=== PATIENT | female | born 1960 | race Caucasian/White ===

== ENCOUNTER 2019-03-27 13:10 | Inpatient (IN) | payer OTHER ==
[~2019-03-27] VITALS: Ht 167.6 cm; Wt 86.2 kg
[~2019-03-27 13:10] MED LIST: [UNRECOGNIZED DRUG - OTHER] PO
[2019-03-27] MEDS ORDERED: ACETAMINOPHEN 325 MG TAB PO STA (16:46)
[2019-03-27] MEDS ORDERED: SODIUM CHLORIDE 0.9% 1L BAG IV* STA (16:46)
[2019-03-27] MEDS ORDERED: CEFEPIME 2GM/50 ML (PMX) 50 ML IVPB STA (16:46)
[2019-03-27] MEDS ORDERED: morphine 4 MG/ML VIAL IV STA (16:46)
[2019-03-27] MEDS ORDERED: PRED5TAB PO (17:20)
[2019-03-27] MEDS ORDERED: HYDR25TA6 PO (17:21)
[2019-03-27] MEDS ORDERED: TRAM50TA PO (17:21)
[2019-03-27] MEDS ORDERED: IBUP-1542 PO (17:21)
[2019-03-27] MEDS ORDERED: MET25 PO (17:22)
[2019-03-27] MEDS ORDERED: SOD CHLORIDE 0.9% 1,000 ML IV SCH (18:59)
[2019-03-27] MEDS ORDERED: ONDANSETRON 4 MG INJ IV PRN ×2 (19:00→19:30)
[2019-03-27] MEDS ORDERED: morphine 2 MG INJ IV PRN (19:00)
[2019-03-27] MEDS ORDERED: ACETAMINOPHEN 325 MG TAB PO PRN ×2 (19:00→19:30)
[2019-03-27] MEDS ORDERED: POTASSIUM CHLORIDE 20 MEQ POWDER FOR ORAL SOLN PO ONE (19:00)
[2019-03-27] MEDS ORDERED: NACL 0.9% 3 ML SYG IV SCH (19:00)
[2019-03-27] MEDS ORDERED: KETOROLAC 30 MG INJ IV STA (19:02)
--- NOTE | 2019-03-27 19:19 | ERD ---
ER Documentation Chief Complaint Chief Complaint FEVER / BODY PAIN HPI 58-year-old female presenting with complaints of fevers intermittently for "a long time" and increasing body pain for the past few days. She complains of bilateral knee and back pain. She is on chronic steroids which usually control her pain. However lately her symptoms have worsened and are not controlled with Tylenol and ibuprofen that she takes at home. She denies any chest pain, shortness of breath, abdominal pain, vomiting, diarrhea, neck stiffness or pain, photophobia, headache, dysuria. Pain is 10 out of 10 in her joints, throbbing, with no alleviating factors. Exacerbated by walking. No numbness or tingling. ROS All systems reviewed and are negative except as per history of present illness. Medications Home Meds Reported Medications Methotrexate* (Methotrexate*) 2.5 Mg Tab, 10 MG PO Q7D, TAB 03/27/19 Hydrochlorothiazide* (Hydrochlorothiazide*) 25 Mg Tab, 25 MG PO DAILY, #30 TAB 03/27/19 Ibuprofen* (Ibuprofen*) 600 Mg Tablet, 600 MG PO Q8, TAB 03/27/19 Tramadol Hcl* (Ultram*) 50 Mg Tablet, 50 MG PO Q6H PRN for PAIN, TAB 03/27/19 Prednisone* (Prednisone*) 5 Mg Tab, 5 MG PO DAILY, TAB 03/27/19 Discontinued Reported Medications [Rumoquin] No Conflict Check, 1 PO DAILY 08/25/13 Allergies Allergies: Coded Allergies: No Known Allergy (Unverified , 03/27/19) PMhx/Soc Medical and Surgical Hx: pt denies Surgical Hx History of Surgery: No Anesthesia Reaction: No Hx Neurological Disorder: No Hx Respiratory Disorders: No Hx Cardiac Disorders: Yes (HTN) Hx Psychiatric Problems: No Hx Alcohol Use: No Hx Substance Use: No Hx Tobacco Use: No Smoking Status: Never smoker FmHx Family History: No diabetes Physical Exam Vitals Vital Signs Date Temp Pulse Resp B/P (MAP) Pulse Ox O2 O2 Flow FiO2 Time Delivery Rate 03/27/19 97.9 94 21 113/72 97 Room Air 18:27 (86) 03/27/19 102.0 17:12 03/27/19 100.6 14:52 03/27/19 102.8 130 24 193/97 99 13:19 (129) Physical Exam Const: Crying, in distress due to pain. Nontoxic Head: Atraumatic Eyes: Normal Conjunctiva ENT: Normal External Ears, Nose and Mouth.posterior oropharynx normal Neck: Full range of motion. No meningismus. Resp: Clear to auscultation bilaterally Cardio: tachycardic with regular rhythm, no murmurs Abd: Soft, non tender, non distended. Normal bowel sounds Skin: No petechiae or rashes Back: No midline or flank tenderness. Diffuse paraspinal muscle tenderness. Ext: Bilateral knee joint swelling with effusions, no erythema. Mild tenderness to palpation. Limited range of motion at knee secondary to pain. Full range of motion at the hips and ankles with no swelling at those joints. B ilateral upper extremities normal to inspection and palpation. Neur: Awake and alert Psych: Normal Mood and Affect Result Diagram: 03/27/19165603/27/191656 Results 24 hrs Laboratory Tests Test 03/27/19 16:56 03/27/19 16:57 03/27/19 16:59 Erythrocyte Sedimentation Rate 37 mm/Hr White Blood Count 12.9 10^3/ul Red Blood Count 4.49 10^6/ul Hemoglobin 13.3 g/dl Hematocrit 38.8 % Mean Corpuscular Volume 86.4 fl Mean Corpuscular Hemoglobin 29.6 pg Mean Corpuscular Hemoglobin Concent 34.3 g/dl Red Cell Distribution Width 13.8 % Platelet Count 356 10^3/UL Mean Platelet Volume 10.5 fl Immature Granulocytes % 0.300 % Neutrophils % 69.4 % Lymphocytes % 22.8 % Monocytes % 5.4 % Eosinophils % 1.8 % Basophils % 0.3 % Nucleated Red Blood Cells % 0.0 /100WBC Immature Granulocytes # 0.040 10^3/ul Neutrophils # 8.9 10^3/ul Lymphocytes # 2.9 10^3/ul Monocytes # 0.7 10^3/ul Eosinophils # 0.2 10^3/ul Basophils # 0.0 10^3/ul Nucleated Red Blood Cells # 0.0 10^3/ul Prothrombin Time 12.7 Sec Prothrombin Time Ratio 1.0 INR International Normalized Ratio 0.94 Activated Partial Thromboplast Time 29.1 Sec Sodium Level 139 mmol/L Potassium Level 3.1 mmol/L Chloride Level 103 mmol/L Carbon Dioxide Level 27 mmol/L Anion Gap 9 Blood Urea Nitrogen 18 mg/dl Creatinine 0.80 mg/dl Est Glomerular Filtrat Rate mL/min > 60 mL/min Glucose Level 148 mg/dl Calcium Level 9.3 mg/dl Total Bilirubin 0.6 mg/dl Direct Bilirubin 0.00 mg/dl Indirect Bilirubin 0.6 mg/dl Aspartate Amino Transf (AST/SGOT) 22 IU/L Alanine Aminotransferase (ALT/SGPT) 13 IU/L Alkaline Phosphatase 110 IU/L Troponin I < 0.012 ng/ml C-Reactive Protein 4.9 mg/dl Total Protein 7.7 g/dl Albumin 4.1 g/dl Globulin 3.60 g/dl Albumin/Globulin Ratio 1.13 POC Venous Lactate 1.8 mmol/L Current Medications Medications Dose Sig/Beena Start Time Status Last (Trade) Ordered Route PRN Stop Time Admin Dose Reason Admin 650 mg ONCE STAT 03/27/19 DC 03/27/19 Acetaminophen PO 16:46 03/27/19 17:12 (Tylenol 16:48 Tab) Morphine 4 mg ONCE STAT 03/27/19 DC 03/27/19 Sulfate IV 16:46 03/27/19 17:11 (morphine) 16:48 Sodium 1,710 ml BOLUS OVER 2 03/27/19 DC 03/27/19 Chloride HOURS STAT 16:46 03/27/19 17:13 (NS) IV* 16:48 Cefepime HCl 50 ml @ ONCE STAT 03/27/19 DC 03/27/19 100 mls/hr IVPB 16:46 03/27/19 17:12 17:15 Potassium 40 meq ONCE ONCE 03/27/19 DC Chloride PO 19:00 03/27/19 (Potassium 19:05 Chloride Pwd/Soln) Sodium 1,000 ml @ Q20H IV 03/27/19 Chloride 50 mls/hr 18:59 03/28/19 14:58 IV Flush 3 ml PER 03/27/19 (NS 3 ml) PROTOCOL IV 19:00 Ondansetron 4 mg Q6H PRN 03/27/19 HCl (Zofran IV 19:00 Inj) NAUSEA/VOMITI NG 650 mg Q6H PRN 03/27/19 Acetaminophen PO .PAIN 1-3 19:00 (Tylenol OR TEMP Tab) 1 tab Q6H PRN 03/27/19 Acetaminophen PO .PAIN 4-6 19:00 / Hydrocodone Bitart ([place] (5/325)) Morphine 2 mg Q4H PRN 03/27/19 Sulfate IV .PAIN 19:00 (morphine) 7-10 Ondansetron 4 mg BRIDGE ORDER 03/27/19 HCl (Zofran PRN IV 19:30 03/28/19 Inj) NAUSEA/VOMITI 19:29 NG 650 mg ER BRIDGE 03/27/19 Acetaminophen PRN PO 19:30 03/28/19 (Tylenol .MILD PAIN 19:29 Tab) 1-3 OR TEMP Ketorolac 30 mg ONCE STAT 03/27/19 DC Tromethamine IV 19:02 03/27/19 (Toradol) 19:03 Procedures/MDM EMERGENT LABS AND DIAGNOSTIC STUDIES: Lab Results above were reviewed and interpreted by me. CBC: Leukocytosis, concerning for acute infection. No anemia CMP: Hypokalemia. No evidence of acidosis, renal failure, hypoglycemia, liver disease, or biliary obstruction Troponin within normal limits, not indicative of cardiac ischemia Lactate within normal limits without evidence of sepsis or tissue hypoperfusion UA: Pending elevated ESR and CRP, consistent with acute inflammatory process 12-lead EKG was interpreted by Shady Chan MD: Normal Sinus Rhythm Normal axis Normal intervals No acute ST or T wave changes suggestive of acute ischemia or STEMI. Radiology Results as interpreted by Radiology below were reviewed by SRuben Chan MD: Chest x-ray shows no acute abnormalities Initial Nursing notes reviewed. Previous Medical Records requested via the Electronic Health Record. EMERGENCY DEPARTMENT COURSE / MEDICAL DECISION MAKING: Patient is presenting with fever and joint pains, likely secondary to acute exacerbation of her arthritis. There is no evidence of septic joint on exam. No other source of infection found on work-up. Sepsis work-up was initiated as the patient met sirs criteria and Is immunosuppressed on chronic steroids., increasing her risk for serious bacterial infection . Broad-spectrum antibiotics given. IV fluids given. No evidence of severe sepsis or septic feroz ck. Patient will be admitted for broad-spectrum antibiotics and further work-up and management of her acute rheumatoid arthritis flare. Accepting Care Team: Current data and ongoing care discussed. Time: Time of admission Primary Provider: Dr. Joseph Outstanding Data: Blood and urine cultures Departure Diagnosis: Primary Impression: Fever Fever type: unspecified Qualified Codes: R50.9 - Fever, unspecified Additional Impressions: Systemic inflammatory response syndrome Rheumatoid arthritis flare Condition: LEO Mayer MD Mar 27, 2019 19:19
[2019-03-27 22:42] VITALS: Ht 167.6 cm; Wt 86.2 kg
[2019-03-27 22:45] VITALS: BP 104/60; PULSE 87; RESP 18
[2019-03-28 02:10] VITALS: BP 118/52; PULSE 90; RESP 18
--- NOTE | 2019-03-28 03:34 | HP ---
Date/Time of Note Date/Time of Note DATE: 03/28/19 TIME: 03:31 Assessment/Plan VTE Prophylaxis SCD applied (from Nsg): Yes Pharmacological prophylaxis: other Lines/Catheters IV Catheter Type (from Nrsg): Saline Lock Assessment/Plan Hospital Course Assessment and plan: 58-year-old female PMHx HTN, gastritis, RA, fever and body aches, signs of possible rheumatoid arthritis flare and sepsis secondary to UTI. 1. Body aches joint pain: Possibly secondary to rheumatoid arthritis flare -Continue pain control medications -Consider rheumatology consult 2. Sepsis: Secondary to UTI as patient came in tachycardic, leukocytosis, p ositive UA, and fevers -Continue Rocephin antibiotics, Tylenol PRN pain fevers, low-dose IV fluids -Follow-up culture results, if symptoms worsen consider ID consult. 3. Gastritis: No present issues -Monitor for now, Pepcid 4. Hypertension: Blood pressure stable -Monitor, continue current medications Result Diagram: 03/27/19 1657 03/27/19 1657 Results 24hrs Laboratory Tests Test 03/27/19 16:56 03/27/19 16:57 03/27/19 16:59 03/27/19 18:58 Erythrocyte 37 H Sedimentation Rate White Blood Count 12.9 H Red Blood Count 4.49 Hemoglobin 13.3 Hematocrit 38.8 Mean Corpuscular Volume 86.4 Mean Corpuscular 29.6 Hemoglobin Mean Corpuscular 34.3 Hemoglobin Concent Red Cell Distribution 13.8 Width Platelet Count 356 Mean Platelet Volume 10.5 H Immature Granulocytes % 0.300 Neutrophils % 69.4 Lymphocytes % 22.8 Monocytes % 5.4 Eosinophils % 1.8 Basophils % 0.3 Nucleated Red Blood 0.0 Cells % Immature Granulocytes # 0.040 H Neutrophils # 8.9 H Lymphocytes # 2.9 Monocytes # 0.7 Eosinophils # 0.2 Basophils # 0.0 Nucleated Red Blood 0.0 Cells # Prothrombin Time 12.7 Prothrombin Time Ratio 1.0 INR International 0.94 Normalized Ratio Activated 29.1 Partial Thromboplast Time Sodium Level 139 Potassium Level 3.1 L Chloride Level 103 Carbon Dioxide Level 27 Anion Gap 9 Blood Urea Nitrogen 18 Creatinine 0.80 Est Glomerular Filtrat > 60 Rate mL/min Glucose Level 148 Calcium Level 9.3 Total Bilirubin 0.6 Direct Bilirubin 0.00 Indirect Bilirubin 0.6 Aspartate Amino 22 Transf (AST/SGOT) Alanine 13 Aminotransferase (ALT/SG PT) Alkaline Phosphatase 110 Troponin I < 0.012 C-Reactive Protein 4.9 H Total Protein 7.7 Albumin 4.1 Globulin 3.60 H Albumin/Globulin Ratio 1.13 POC Venous Lactate 1.8 Lactic Acid Level 1.1 Test 03/27/19 19:31 03/27/19 19:41 03/27/19 21:23 Bedside Urine pH (LAB) 6.0 Bedside Urine Protein Negative (LAB) Bedside Urine Glucose Negative (UA) Bedside Urine Ketones Negative (LAB) Bedside Urine Blood Negative Bedside Urine Nitrite Negative (LAB) Bedside Urine 1+ H Leukocyte Esterase (L Urine Color YELLOW Urine Clarity CLEAR Urine pH 6.0 Urine Specific [place] 1.008 Urine Ketones NEGATIVE Urine Nitrite NEGATIVE Urine Bilirubin NEGATIVE Urine Urobilinogen NEGATIVE Urine Leukocyte Esterase 1+ H Urine Microscopic RBC 2 Urine Microscopic WBC 2 Urine Squamous FEW Epithelial Cells Urine Hemoglobin NEGATIVE Urine Glucose NEGATIVE Urine Total Protein NEGATIVE Lactic Acid Level 1.5 HPI/ROS Admit Date/Time Admit Date/Time Mar 27, 2019 at 19:01 Hx of Present Illness 58-year-old female PMHx HTN, gastritis, RA, fever and body aches. Symptoms have been going on for the last few days per patient. She also complains of bilateral knee and back pain. Patient has been on chronic steroids as an outpatient. She also states 10 out of 10 pain in her joint. She is on chronic steroids which usually control her pain. However lately her symptoms have worsened and are not controlled with Tylenol and ibuprofen that she takes at home. Patient denied chest pain, shortness of breath, abdominal pain, vomiting, diarrhea, neck stiffness or pain, photophobia, headache, dysuria. Exacerbated by walking. No numbness or tingling. When the patient came in today she was found fever 102, and her UA was positive for UTI as well. PMH/Family/Social Past Medical History Medications Current Medications Sodium Chloride 1,000 ml @ 50 mls/hr Q20H IV Last administered on 03/27/19at 20:32; Admin Dose 50 MLS/HR; Start 03/27/19 at 18:59; Stop 03/28/19 at 14:58 IV Flush (NS 3 ml) 3 ml PER PROTOCOL IV ; Start 03/27/19 at 19:00 Ondansetron HCl (Zofran Inj) 4 mg Q6H PRN IV NAUSEA/VOMITING Last administered on 03/27/19at 22:28; Admin Dose 4 MG; Start 03/27/19 at 19:00 Acetaminophen (Tylenol Tab) 650 mg Q6H PRN PO .PAIN 1-3 OR TEMP; Start 03/27/19 at 19:00 Acetaminophen/ Hydrocodone Bitart ([place] (5/325)) 1 tab Q6H PRN PO .PAIN 4-6; Start 03/27/19 at 19:00 Morphine Sulfate (morphine) 2 mg Q4H PRN IV .PAIN 7-10; Start 03/27/19 at 19:00 Ondansetron HCl (Zofran Inj) 4 mg BRIDGE ORDER PRN IV NAUSEA/VOMITING; Start 03/27/19 at 19:30; Stop 03/28/19 at 19:29 Acetaminophen (Tylenol Tab) 650 mg ER BRIDGE PRN PO .MILD PAIN 1-3 OR TEMP; Start 03/27/19 at 19:30; Stop 03/28/19 at 19:29 Coded Allergies: No Known Allergy (Unverified , 03/27/19) Past Surgical History Past Surgical Hx: other (hysterectomy) Family History Significant Family History: no pertinent family hx Social History Alcohol Use: none Smoking Status: Never smoker Drug Use: none Exam/Review of Systems Vital Signs Vitals Vital Signs Date Temp Pulse Resp B/P (MAP) Pulse Ox O2 O2 Flow FiO2 Time Delivery Rate 03/28/19 99.0 90 18 118/52 99 02:10 (74) 03/27/19 Room Air 22:03 Exam Exam GENERAL: lying in bed, no acute distress HEENT: Pupils equal, round, and reactive to light. EOMI. NECK: Supple LUNGS: Clear to auscultation bilaterally, no rales, wheezes or rhonchi. HEART: Regular rate and rhythm, no murmurs, clicks, rubs or gallops. ABDOMEN: Soft, non-tender, non-distended. Positive bowel sounds in all four quadrants. No rebound or guarding. EXTREMITIES: Bilateral knee joint swelling with effusions, no erythema. Mild tenderness to palpation. Limited range of motion at knee secondary to pain. Full range of motion at the hips and ankles with no swelling at those joints. Bilateral upper extremities normal to inspection and palpation. NEURO: No focal deficits ALFRED ELIZONDO. Mar 28, 2019 03:34
[2019-03-28] MEDS ORDERED: traMADol 50 MG TAB PO PRN (04:00)
[2019-03-28] MEDS ORDERED: hydrALAzine 20 MG INJ IV PRN (04:00)
[2019-03-28] MEDS: CEFTRIAXONE 1 GM/50 ML (PMX) 50 ML IVPB SCH (04:41)
[2019-03-28 08:42] VITALS: BP 112/62; PULSE 102; RESP 18
[2019-03-28] MEDS ORDERED: FAMOTIDINE 20 MG INJ IV SCH (09:00)
[2019-03-28] MEDS: HYDROCODONE/APAP (5/325) TAB PO PRN ×2 (09:11→23:03)
[2019-03-28] MEDS: HYDROCHLOROTHIAZIDE 25 MG TAB PO SCH (09:11)
[2019-03-28 15:03] VITALS: BP 93/50; PULSE 84; RESP 19
--- NOTE | 2019-03-28 16:38 | PN ---
Date/Time of Note Date/Time of Note DATE: 03/28/19 TIME: 16:35 Assessment/Plan VTE Prophylaxis Risk score (from Ns)>0 risk: 3 SCD applied (from Ns): Yes Pharmacological prophylaxis: NA/contraindicated Pharm contraindication: low risk/ambulating Lines/Catheters IV Catheter Type (from Nrsg): Peripheral IV Urinary Cath still in place: No Assessment/Plan Hospital Course Assessment and plan: 58-year-old female PMHx HTN, gastritis, RA, fever and body aches, signs of possible rheumatoid arthritis flare and sepsis secondary to UTI. 1. Body aches joint pain: Possibly secondary to rheumatoid arthritis flare -Continue pain control medications 2. Sepsis-etiology possibly secondary to viral syndrome versus UTI -Patient presented with tachycardia, leukocytosis and fevers -Continue Rocephin empirically -Follow-up culture results, if symptoms worsen consider ID consult. 3. Gastritis: No present issues -Monitor for now, Pepcid 4. Hypertension: Blood pressure stable -Monitor, continue current medications Prophylaxis: Ambulation DC planning: Anticipate DC home tomorrow if cultures are negative and sepsis has resolved Result Diagram: 03/28/19 0720 03/28/19 0720 Results 24hrs Laboratory Tests Test 03/27/19 16:56 03/27/19 16:57 03/27/19 16:59 03/27/19 18:58 Erythrocyte 37 H Sedimentation Rate White Blood Count 12.9 H Red Blood Count 4.49 Hemoglobin 13.3 Hematocrit 38.8 Mean Corpuscular Volume 86.4 Mean Corpuscular 29.6 Hemoglobin Mean Corpuscular 34.3 Hemoglobin Concent Red Cell Distribution 13.8 Width Platelet Count 356 Mean Platelet Volume 10.5 H Immature Granulocytes % 0.300 Neutrophils % 69.4 Lymphocytes % 22.8 Monocytes % 5.4 Eosinophils % 1.8 Basophils % 0.3 Nucleated Red Blood 0.0 Cells % Immature Granulocytes # 0.040 H Neutrophils # 8.9 H Lymphocytes # 2.9 Monocytes # 0.7 Eosinophils # 0.2 Basophils # 0.0 Nucleated Red Blood 0.0 Cells # Prothrombin Time 12.7 Prothrombin Time Ratio 1.0 INR International 0.94 Normalized Ratio Activated 29.1 Partial Thromboplast Time Sodium Level 139 Potassium Level 3.1 L Chloride Level 103 Carbon Dioxide Level 27 Anion Gap 9 Blood Urea Nitrogen 18 Creatinine 0.80 Est Glomerular Filtrat > 60 Rate mL/min Glucose Level 148 Calcium Level 9.3 Total Bilirubin 0.6 Direct Bilirubin 0.00 Indirect Bilirubin 0.6 Aspartate Amino 22 Transf (AST/SGOT) Alanine 13 Aminotransferase (ALT/SG PT) Alkaline Phosphatase 110 Troponin I < 0.012 C-Reactive Protein 4.9 H Total Protein 7.7 Albumin 4.1 Globulin 3.60 H Albumin/Globulin Ratio 1.13 POC Venous Lactate 1.8 Lactic Acid Level 1.1 Test 03/27/19 19:31 03/27/19 19:41 03/27/19 21:23 03/28/19 07:20 Bedside Urine pH (LAB) 6.0 Bedside Urine Protein Negative (LAB) Bedside Urine Glucose Negative (UA) Bedside Urine Ketones Negative (LAB) Bedside Urine Blood Negative Bedside Urine Nitrite Negative (LAB) Bedside Urine 1+ H Leukocyte Esterase (L Urine Color YELLOW Urine Clarity CLEAR Urine pH 6.0 Urine Specific [place] 1.008 Urine Ketones NEGATIVE Urine Nitrite NEGATIVE Urine Bilirubin NEGATIVE Urine Urobilinogen NEGATIVE Urine Leukocyte Esterase 1+ H Urine Microscopic RBC 2 Urine Microscopic WBC 2 Urine Squamous FEW Epithelial Cells Urine Hemoglobin NEGATIVE Urine Glucose NEGATIVE Urine Total Protein NEGATIVE Lactic Acid Level 1.5 White Blood Count 11.4 H Red Blood Count 3.91 L Hemoglobin 11.4 L Hematocrit 33.8 L Mean Corpuscular Volume 86.4 Mean Corpuscular 29.2 Hemoglobin Mean Corpuscular 33.7 Hemoglobin Concent Red Cell Distribution 14.1 Width Platelet Count 298 Mean Platelet Volume 11.0 H Immature Granulocytes % 0.400 Neutrophils % 68.8 Lymphocytes % 21.0 Monocytes % 7.6 Eosinophils % 1.9 Basophils % 0.3 Nucleated Red Blood 0.0 Cells % Immature Granulocytes # 0.040 H Neutrophils # 7.8 H Lymphocytes # 2.4 Monocytes # 0.9 Eosinophils # 0.2 Basophils # 0.0 Nucleated Red Blood 0.0 Cells # Sodium Level 143 Potassium Level 3.5 Chloride Level 111 H Carbon Dioxide Level 24 Anion Gap 8 Blood Urea Nitrogen 11 Creatinine 0.61 Est Glomerular Filtrat > 60 Rate mL/min Glucose Level 87 # Hemoglobin A1c 5.7 Calcium Level 8.4 Magnesium Level 1.7 Total Bilirubin 0.7 Direct Bilirubin 0.00 Indirect Bilirubin 0.7 Aspartate Amino 15 Transf (AST/SGOT) Alanine 21 Aminotransferase (ALT/SG PT) Alkaline Phosphatase 75 Total Protein 6.0 #L Albumin 3.0 #L Globulin 3.00 Albumin/Globulin Ratio 1.00 Thyroid Stimulating 1.550 Hormone (TSH) Subjective 24 Hr Interval Summary Constitutional: no complaints Exam/Review of Systems Exam Vitals Vital Signs Date Temp Pulse Resp B/P (MAP) Pulse Ox O2 O2 Flow FiO2 Time Delivery Rate 03/28/19 98.8 84 19 93/50 (64) 98 15:03 03/27/19 Room Air 22:03 Intake and Output 03/27/19 03/27/19 03/28/19 1515:00 23:00 07:00 IntakeIntake Total 880 ml BalanceBalance 880 ml Constitutional: alert, oriented Respiratory: clear to auscultation Cardiovascular: regular rate and rhythm Gastrointestinal: soft; No distended Musculoskeletal: nl extremities to inspection Results Results 24hrs Laboratory Tests Test 03/27/19 16:56 03/27/19 16:57 03/27/19 16:59 03/27/19 18:58 Erythrocyte 37 H Sedimentation Rate White Blood Count 12.9 H Red Blood Count 4.49 Hemoglobin 13.3 Hematocrit 38.8 Mean Corpuscular Volume 86.4 Mean Corpuscular 29.6 Hemoglobin Mean Corpuscular 34.3 Hemoglobin Concent Red Cell Distribution 13.8 Width Platelet Count 356 Mean Platelet Volume 10.5 H Immature Granulocytes % 0.300 Neutrophils % 69.4 Lymphocytes % 22.8 Monocytes % 5.4 Eosinophils % 1.8 Basophils % 0.3 Nucleated Red Blood 0.0 Cells % Immature Granulocytes # 0.040 H Neutrophils # 8.9 H Lymphocytes # 2.9 Monocytes # 0.7 Eosinophils # 0.2 Basophils # 0.0 Nucleated Red Blood 0.0 Cells # Prothrombin Time 12.7 Prothrombin Time Ratio 1.0 INR International 0.94 Normalized Ratio Activated 29.1 Partial Thromboplast Time Sodium Level 139 Potassium Level 3.1 L Chloride Level 103 Carbon Dioxide Level 27 Anion Gap 9 Blood Urea Nitrogen 18 Creatinine 0.80 Est Glomerular Filtrat > 60 Rate mL/min Glucose Level 148 Calcium Level 9.3 Total Bilirubin 0.6 Direct Bilirubin 0.00 Indirect Bilirubin 0.6 Aspartate Amino 22 Transf (AST/SGOT) Alanine 13 Aminotransferase (ALT/SG PT) Alkaline Phosphatase 110 Troponin I < 0.012 C-Reactive Protein 4.9 H Total Protein 7.7 Albumin 4.1 Globulin 3.60 H Albumin/Globulin Ratio 1.13 POC Venous Lactate 1.8 Lactic Acid Level 1.1 Test 03/27/19 19:31 03/27/19 19:41 03/27/19 21:23 03/28/19 07:20 Bedside Urine pH (LAB) 6.0 Bedside Urine Protein Negative (LAB) Bedside Urine Glucose Negative (UA) Bedside Urine Ketones Negative (LAB) Bedside Urine Blood Negative Bedside Urine Nitrite Negative (LAB) Bedside Urine 1+ H Leukocyte Esterase (L Urine Color YELLOW Urine Clarity CLEAR Urine pH 6.0 Urine Specific [place] 1.008 Urine Ketones NEGATIVE Urine Nitrite NEGATIVE Urine Bilirubin NEGATIVE Urine Urobilinogen NEGATIVE Urine Leukocyte Esterase 1+ H Urine Microscopic RBC 2 Urine Microscopic WBC 2 Urine Squamous FEW Epithelial Cells Urine Hemoglobin NEGATIVE Urine Glucose NEGATIVE Urine Total Protein NEGATIVE Lactic Acid Level 1.5 White Blood Count 11.4 H Red Blood Count 3.91 L Hemoglobin 11.4 L Hematocrit 33.8 L Mean Corpuscular Volume 86.4 Mean Corpuscular 29.2 Hemoglobin Mean Corpuscular 33.7 Hemoglobin Concent Red Cell Distribution 14.1 Width Platelet Count 298 Mean Platelet Volume 11.0 H Immature Granulocytes % 0.400 Neutrophils % 68.8 Lymphocytes % 21.0 Monocytes % 7.6 Eosinophils % 1.9 Basophils % 0.3 Nucleated Red Blood 0.0 Cells % Immature Granulocytes # 0.040 H Neutrophils # 7.8 H Lymphocytes # 2.4 Monocytes # 0.9 Eosinophils # 0.2 Basophils # 0.0 Nucleated Red Blood 0.0 Cells # Sodium Level 143 Potassium Level 3.5 Chloride Level 111 H Carbon Dioxide Level 24 Anion Gap 8 Blood Urea Nitrogen 11 Creatinine 0.61 Est Glomerular Filtrat > 60 Rate mL/min Glucose Level 87 # Hemoglobin A1c 5.7 Calcium Level 8.4 Magnesium Level 1.7 Total Bilirubin 0.7 Direct Bilirubin 0.00 Indirect Bilirubin 0.7 Aspartate Amino 15 Transf (AST/SGOT) Alanine 21 Aminotransferase (ALT/SG PT) Alkaline Phosphatase 75 Total Protein 6.0 #L Albumin 3.0 #L Globulin 3.00 Albumin/Globulin Ratio 1.00 Thyroid Stimulating 1.550 Hormone (TSH) Medications Medication Current Medications IV Flush (NS 3 ml) 3 ml PER PROTOCOL IV ; Start 03/27/19 at 19:00 Ondansetron HCl (Zofran Inj) 4 mg Q6H PRN IV NAUSEA/VOMITING Last administered on 03/27/19 22:28; Admin Dose 4 MG; Start 03/27/19 at 19:00 Acetaminophen (Tylenol Tab) 650 mg Q6H PRN PO .PAIN 1-3 OR TEMP Last administered on 03/28/19 09:11; Admin Dose 650 MG; Start 03/27/19 at 19:00 Acetaminophen/ Hydrocodone Bitart ([place] (5/325)) 1 tab Q6H PRN PO .PAIN 4-6 Last administered on 03/28/19 09:11; Admin Dose 1 TAB; Start 03/27/19 at 19:00 Morphine Sulfate (morphine) 2 mg Q4H PRN IV .PAIN 7-10; Start 03/27/19 at 19:00 Ondansetron HCl (Zofran Inj) 4 mg BRIDGE ORDER PRN IV NAUSEA/VOMITING; Start 03/27/19 at 19:30; Stop 03/28/19 at 19:29 Acetaminophen (Tylenol Tab) 650 mg ER BRIDGE PRN PO .MILD PAIN 1-3 OR TEMP; Start 03/27/19 at 19:30; Stop 03/28/19 at 19:29 Ceftriaxone Sodium 50 ml @ 100 mls/hr Q24H IVPB Last administered on 03/28/19 04:41; Admin Dose 100 MLS/HR; Start 03/28/19 at 04:00 Hydralazine HCl (Apresoline) 10 mg Q6H PRN IV ELEVATED BLOOD PRESSURE; Start 03/28/19 at 04:00 Hydrochlorothiazide (Hydrochlorothiazide) 25 mg DAILY PO Last administered on 03/28/19 09:11; Admin Dose 25 MG; Start 03/28/19 at 09:00 Methotrexate (Methotrexate) 10 mg Q7D@0900 PO ; Start 03/28/19 at 17:00 Tramadol HCl (Ultram) 50 mg Q6H PRN PO PAIN; Start 03/28/19 at 04:00 Famotidine (Pepcid Iv) 20 mg DAILY IV Last administered on 03/28/19 09:11; Admin Dose 20 MG; Start 03/28/19 at 09:00 MANUELITO GONZALES Mar 28, 2019 16:38
[2019-03-28] MEDS ORDERED: METHOTREXATE 2.5 MG TAB PO SCH (17:00)
[2019-03-28 20:00] VITALS: BP 108/62; PULSE 100; RESP 18
[2019-03-29 02:00] VITALS: BP 99/56; PULSE 89; RESP 18
[2019-03-29] MEDS: CEFTRIAXONE 1 GM/50 ML (PMX) 50 ML IVPB SCH (03:39)
[2019-03-29 08:45] VITALS: BP 106/60; PULSE 69; RESP 18
[2019-03-29] MEDS: HYDROCHLOROTHIAZIDE 25 MG TAB PO SCH (08:51)
[2019-03-29] MEDS ORDERED: FAMOTIDINE 20 MG TAB PO SCH (09:00)
[2019-03-29] MEDS: HYDROCODONE/APAP (5/325) TAB PO PRN (10:37)
--- NOTE | 2019-03-29 11:04 | PDOCDIS ---
Discharge Instructions CONDITION [id number] Patient Condition: [id number] Good HOME CARE INSTRUCTIONS: [id number] Diet Instructions: [id number] Regular ACTIVITY: [id number] Activity Restrictions: [id number] No Restrictions FOLLOW UP/APPOINTMENTS Follow-up Plan FOLLOW UP WITH YOUR PCP IN 1-2 WEEKS MANUELITO GONZALES Mar 29, 2019 11:04
--- NOTE | 2019-03-29 15:30 | DS ---
Date/Time of Note Date/Time of Note DATE: 03/29/19 TIME: 15:27 Discharge Summary Admission/Discharge Info Admit Date/Time Mar 28, 2019 at 07:29 Discharge Date/Time Mar 29, 2019 at 14:00 Discharge Diagnosis 1. Joint and muscular pain secondary to rheumatoid arthritis and chronic muscle tension -Continue pain control medications, patient follows up with lead software test engineer, patient to inquire about outpatient PT 2. Sepsis-secondary to viral syndrome -Patient presented with tachycardia, leukocytosis and fevers -Status post Rocephin empirically -Cultures are negative 3. Gastritis: No present issues -Pepcid 4. Hypertension: Blood pressure stable -Continue meds Patient Condition: Good Hospital Course Patient is a 58-year-old female PMHx HTN, gastritis, RA, fever and body aches who presents with signs of sepsis with tachycardia leukocytosis and fevers. Patient does have chronic pain in her knee secondary to rheumatoid arthritis, patient also has chronic muscle tension in her lower extremities. Patient does follow-up with lead software test engineer and is on medications for arthritis. Patient's sepsis did resolve and cultures were negative, patient may have had a viral syndrome. Patient had no further indication for antibiotics and was stable for DC to follow-up with lead software test engineer. Patient was also advised to inquire about outpatient PT. On the day of discharge patient's vitals, labs and physical exam are stable. Home Meds Reported Medications Methotrexate* (Methotrexate*) 2.5 Mg Tab, 10 MG PO Q7D, TAB 03/27/19 Hydrochlorothiazide* (Hydrochlorothiazide*) 25 Mg Tab, 25 MG PO DAILY, #30 TAB 03/27/19 Ibuprofen* (Ibuprofen*) 600 Mg Tablet, 600 MG PO Q8, TAB 03/27/19 Tramadol Hcl* (Ultram*) 50 Mg Tablet, 50 MG PO Q6H PRN for PAIN, TAB 03/27/19 Prednisone* (Prednisone*) 5 Mg Tab, 5 MG PO DAILY, TAB 03/27/19 Discontinued Reported Medications [Rumoquin] No Conflict Check, 1 PO DAILY 08/25/13 Follow-up Plan FOLLOW UP WITH YOUR PCP IN 1-2 WEEKS Primary Care Provider [facility] Time spent on discharge: > 30 minutes MANUELITO GONZALES Mar 29, 2019 15:30
[2019-04-03] MEDS ORDERED: METHOTREXATE 2.5 MG TAB PO SCH (09:00)
== END 2019-03-29 14:00 | disposition home or self-care (01) | DRG 872 ==
LOC: E/R 13:10 → PP2 19:01 → OBSVTOIN 03-28 07:29
PROVIDERS: ADMIT Hospitalist; ATTEND Internal Medicine
DX: A41.9 Sepsis, unspecified organism (principal); N39.0 Urinary tract infection, site not specified; B34.9 Viral infection, unspecified; K29.70 Gastritis, unspecified, without bleeding; M06.9 Rheumatoid arthritis, unspecified; I10 Essential (primary) hypertension
CPT/HCPCS: 36415; 71045; 80048; 80053; 81001; 81003; 83036; 83605; 83735; 84100; 84443; 84484; 85025; 85610; 85651; 85730; 86140; 87086; 93005; 96374; 96375; 99217; G0378; J0692; J0696; J1885; J2270; J2405; J7030